=== PATIENT | female | born 1960 | race Caucasian/White ===

== ENCOUNTER 2020-05-28 05:15 | Inpatient (IN) | payer OTHER ==
[~2020-05-28 05:15] MED LIST: ASA81 MG; COZAAR50 MG PO; FORTAMET500 MG PO; SYNTHROID112 MCG PO; VITAMIN D PO
[2020-05-29] MEDS ORDERED: SYNTHROID125 MCG PO (08:23)
[2020-05-29] MEDS ORDERED: VITAMIN D310 MC5 PO (08:25)
[2020-05-31] MEDS ORDERED: GABAPENTIN300 MG PO (07:43)
[2020-05-31] MEDS ORDERED: HIBICLENS118 ML TOP (07:44)
[2020-05-31] MEDS ORDERED: OXYC1TAB9 PO (07:44)
== END 2020-05-31 09:57 | disposition home or self-care (01) | DRG 334 ==
LOC: CIR.AMB 05:15 → O/R 12:06 → SURH 12:06
PROVIDERS: Neurological Surgery; ADMIT Surgery; ATTEND Surgery
PROC: 0DTP0ZZ Resection of Rectum, Open Approach (ICD-10-PCS; principal; 2020-05-28 07:00)
PROC: 0QBS0ZZ Excision of Coccyx, Open Approach (ICD-10-PCS; 2020-05-28 07:00)
DX: C20 Malignant neoplasm of rectum (principal); E11.9 Type 2 diabetes mellitus without complications; I10 Essential (primary) hypertension

== ENCOUNTER 2020-06-04 14:02 | Inpatient (IN) | payer OTHER ==
[~2020-06-04] VITALS: Ht 162.6 cm; Wt 84.8 kg
[~2020-06-04 14:02] MED LIST changes: +GABAPENTIN300 MG PO; +HIBICLENS118 ML TOP; +OXYC1TAB9 PO; +SYNTHROID125 MCG PO; +VITAMIN D310 MC5 PO
[2020-06-04] MEDS ORDERED: SYNTHROID112 MCG PO (14:18)
[2020-06-04] MEDS ORDERED: COZAAR50 MG PO (14:18)
[2020-06-07] MEDS ORDERED: VANCOMYCIN HCL125 MG PO (11:22)
[2020-06-07] MEDS ORDERED: QUESTRAN PACKET4 GM PO (11:24)
== END 2020-06-07 13:04 | disposition home or self-care (01) | DRG 392 ==
LOC: ER 14:02 → SURH 19:05
PROVIDERS: ADMIT Surgery; ATTEND Surgery
PROC: BW21YZZ Computerized Tomography (CT Scan) of Abdomen and Pelvis using Other Contrast (ICD-10-PCS; 2020-06-04)
PROC: 8E0ZXY6 Isolation (ICD-10-PCS; principal; 2020-06-06)
DX: K52.9 Noninfective gastroenteritis and colitis, unspecified (principal); B37.49 Other urogenital candidiasis; C48.0 Malignant neoplasm of retroperitoneum; E03.9 Hypothyroidism, unspecified; I10 Essential (primary) hypertension; E11.9 Type 2 diabetes mellitus without complications; Z20.828 Contact with and (suspected) exposure to other viral communicable diseases

== ENCOUNTER 2020-07-04 07:42 | Outpatient (CLI) | payer OTHER ==
[~2020-07-04 07:42] MED LIST changes: +QUESTRAN PACKET4 GM PO; +VANCOMYCIN HCL125 MG PO
== END 2020-07-04 08:01 | disposition home or self-care (01) ==
LOC: MRI 07:42
PROVIDERS: ATTEND Internal Medicine Hematology & Oncology
DX: C48.0 Malignant neoplasm of retroperitoneum (principal)
CPT/HCPCS: 72196; 74182

== ENCOUNTER 2022-12-01 05:50 | Inpatient (IN) | payer OTHER ==
[~2022-12-01] VITALS: Ht 162.6 cm; Wt 186.9 kg
[2022-12-02] MEDS ORDERED: VENTOLIN HFA18 GM (10:44)
[2022-12-03] MEDS ORDERED: HIBICLENS118 ML TOP (10:23)
[2022-12-03] MEDS ORDERED: NEURONTIN300 MG PO (10:23)
[2022-12-03] MEDS ORDERED: CIPRO500 MG PO (10:24)
[2022-12-03] MEDS ORDERED: METRONIDAZOLE500 MG PO (10:24)
== END 2022-12-04 17:21 | DRG 349 ==
LOC: CIR.AMB 05:50 → ER PEDPPHC 09:30 → CIR.AMB 10:45 → O/R 12:49 → SURH 12:49
PROVIDERS: ADMIT Surgery; ATTEND Surgery
PROC: 0DBP7ZZ Excision of Rectum, Via Natural or Artificial Opening (ICD-10-PCS; principal; 2022-12-01 10:45)
DX: C20 Malignant neoplasm of rectum (principal); K62.7 Radiation proctitis

== ENCOUNTER 2024-11-10 23:21 | Inpatient (IN) | payer OTHER ==
[~2024-11-10] VITALS: Ht 162.6 cm; Wt 74.8 kg
[~2024-11-10 23:21] MED LIST changes: +CIPRO500 MG PO; +METRONIDAZOLE500 MG PO; +NEURONTIN300 MG PO; +VENTOLIN HFA18 GM
[2024-11-10] MEDS ORDERED: 0.9 % SODIUM CHLORIDE 1,000 ML IV SCH (23:30)
[2024-11-10] MEDS ORDERED: CLONIDINE HCL0.1 MG (23:32)
[2024-11-10] MEDS ORDERED: ACTOS30 MG (23:33)
[2024-11-10] MEDS ORDERED: PEPCID AC10 MG (23:33)
--- NOTE | 2024-11-10 23:33 | NUR ---
SE RECIBE PACIENTE ALERTA Y ORIENTADA X 3 ESFERAS EN AMBULANCIA LA CUAL INDICA QUE PRESENTA ABSCESO EN ESPALDA BAJA DESDE HACE DOS DELANEY.
[2024-11-10] MEDS ORDERED: CIPROFLOXACIN IN 5 % DEXTROSE 200 ML IV SCH (23:34)
[2024-11-10] MEDS ORDERED: DEXTROSE 50 % IN WATER 0.5 G/ML DISP.SYRIN IV PRN (23:45)
[2024-11-10] MEDS ORDERED: ONDANSETRON HCL 4 MG in 0.9 % SODIUM CHLORIDE 50 ML IV PRN (23:45)
[2024-11-10] MEDS ORDERED: ACETAMINOPHEN 500 MG GEL..CAP PO PRN (23:45)
[2024-11-10] MEDS ORDERED: INSULIN LISPRO 1,000 UNIT/10 ML UNITS SUBCUTANEO PRN (23:45)
--- NOTE | 2024-11-11 00:47 | NUR ---
EVALUA PACIENTE Y CONSULTA A PACIENTE CON Y DR.RODRIGUEZ HURTADO.
[2024-11-11] MEDS ORDERED: METRONIDAZOLE/SODIUM CHLORIDE 100 ML IV SCH (01:00)
[2024-11-11 01:59] VITALS: BP 139/84; O2SAT 100
[2024-11-11 02:04] LABS: HEMATOCRIT 29.2 % (36.0-45.00); MEAN CELL VOLUME 93.7 fL (80.00-100.00); MEAN CORPUSCULAR HGB CONC 32.9 g/dl (32.0-36.0); RED BLOOD COUNT 3.12 M/uL (4.00-6.00); RED CELL DISTRIBUTION WIDTH 16.2 % (11.5-14.5)
[2024-11-11 02:07] LABS: HEMOGLOBIN 9.6 g/dL (12.0-15.00); MEAN CORPUSCULAR HEMOGLOBIN 30.7 pg (27.00-32.0); PLATELET COUNT 127 K/uL (150-450)
[2024-11-11 02:08] LABS: ERYTHROCYTE SEDIMENTATION RATE 123 mm/hr
[2024-11-11 02:13] LABS: ALBUMIN 2.8 gm/dL (3.4-5.0); BILIRUBIN TOTAL 0.24 mg/dL (0.3-1.2); CREATININE SERUM 0.92 mg/dL (0.55-1.02); GFR 61.65; GLOBULINA 3.6 G/DL (2.4-3.5); POTASSIUM 3.85 mEq/L (3.5-5.1); TOTAL PROTEIN 6.4 gm/dL (6.4-8.2)
[2024-11-11 02:14] LABS: INR 1.01; PARTIAL THROMBOPLASTIN TIME 25.4 SECONDS (22.0-34.0)
[2024-11-11 02:16] LABS: C-REACTIVE PROTEIN 4.25 MG/DL (0.00-0.29)
[2024-11-11] MEDS ORDERED: LEVOTHYROXINE SODIUM 112 MCG TABLET PO SCH (06:00)
[2024-11-11 08:38] VITALS: BP 100/66; O2SAT 100
[2024-11-11] MEDS ORDERED: FAMOTIDINE/PF 20 MG in 0.9 % SODIUM CHLORIDE 8 ML IV PUSH SCH (09:00)
[2024-11-11] MEDS ORDERED: LOSARTAN POTASSIUM 50 MG TABLET PO SCH (09:00)
[2024-11-11] MEDS ORDERED: ENOXAPARIN SODIUM 40 MG/0.4 ML SYRINGE SUBCUTANEO SCH (09:00)
[2024-11-11 09:57] LABS: PH,URINE 5.5 (5.0-8.0); URINE APPEARANCE Clear; URINE BILIRRUBIN Negative (NEGATIVE); URINE BLOOD Negative; URINE COLOR Yellow; URINE GLUCOSE Negative (NEGATIVE); URINE KETONE Negative (NEGATIVE); URINE LEUKOCYTE Negative; URINE NITRATE Negative; URINE PROTEIN Negative (NEGATIVE); URINE UROBILINOGEN 0.2 E.U./dl
[2024-11-11 09:59] LABS: URINE BACTERIA 6.1 uL (0.0-1933); URINE EPITHELIAL CELLS 3.9 uL (0.0-38.8); URINE WBC 3.3 uL (0.0-23.2)
[2024-11-11 10:05] LABS: URINE RBC 1.1 uL (0.0-20.8)
[2024-11-11 16:00] VITALS: BP 117/73; O2SAT 98
[2024-11-11] MEDS ORDERED: CHLORHEXIDINE GLUCONATE 120 ML BOTTLE TOP SCH (17:00)
[2024-11-11] MEDS ORDERED: LACTOBACILLUS ACIDOPHILUS 1 CAP CAP PO SCH (17:00)
[2024-11-12 01:00] VITALS: BP 130/82; O2SAT 100
[2024-11-12 08:00] VITALS: BP 140/82; O2SAT 97
[2024-11-12 08:20] LABS: HEMATOCRIT 26.4 % (36.0-45.00); MEAN CELL VOLUME 92.4 fL (80.00-100.00); MEAN CORPUSCULAR HGB CONC 33.5 g/dl (32.0-36.0); PLATELET COUNT 154 K/uL (150-450); RED BLOOD COUNT 2.86 M/uL (4.00-6.00)
[2024-11-12 08:21] LABS: HEMOGLOBIN 8.9 g/dL (12.0-15.00); MEAN CORPUSCULAR HEMOGLOBIN 31.1 pg (27.00-32.0)
[2024-11-12 08:35] LABS: CALCIUM 8.5 mg/dL (8.5-10.1); CREATININE SERUM 0.7 mg/dL (0.55-1.02); GFR 84.51; POTASSIUM 4.4 mEq/L (3.5-5.1)
[2024-11-12 15:59] VITALS: BP 124/76; O2SAT 100
[2024-11-13] VITALS: BP 126/65; O2SAT 100
[2024-11-13 08:00] VITALS: BP 131/86; O2SAT 97
[2024-11-13 16:40] VITALS: BP 135/85; O2SAT 100
[2024-11-14] VITALS: BP 120/66; O2SAT 99
[2024-11-14 06:51] LABS: HEMATOCRIT 28.1 % (36.0-45.00); HEMOGLOBIN 9.3 g/dL (12.0-15.00); MEAN CELL VOLUME 92.9 fL (80.00-100.00); MEAN CORPUSCULAR HEMOGLOBIN 30.9 pg (27.00-32.0); MEAN CORPUSCULAR HGB CONC 33.2 g/dl (32.0-36.0); PLATELET COUNT 290 K/uL (150-450); RED BLOOD COUNT 3.02 M/uL (4.00-6.00); RED CELL DISTRIBUTION WIDTH 16.1 % (11.5-14.5)
[2024-11-14 07:40] LABS: ALBUMIN 2.6 gm/dL (3.4-5.0); BILIRUBIN TOTAL 0.24 mg/dL (0.3-1.2); CALCIUM 8.8 mg/dL (8.5-10.1); CREATININE SERUM 0.68 mg/dL (0.55-1.02); GFR 87.39; GLOBULINA 2.5 G/DL (2.4-3.5); POTASSIUM 4.8 mEq/L (3.5-5.1); TOTAL PROTEIN 5.1 gm/dL (6.4-8.2)
[2024-11-14 08:44] VITALS: BP 128/73; O2SAT 95
[2024-11-14] MEDS ORDERED: DIPHENHYDRAMINE HCL 50 MG/ML VIAL 1ML ONE (09:10)
[2024-11-14] MEDS ORDERED: METHYLPREDNISOLONE SOD SUCC 125 MG VIAL ONE (09:10)
[2024-11-14] MEDS ORDERED: METHYLPREDNISOLONE SOD SUCC 125 MG VIAL IV ONE (09:15)
[2024-11-14] MEDS ORDERED: DIPHENHYDRAMINE HCL 50 MG/ML VIAL 1ML IV ONE (09:15)
[2024-11-14 17:17] VITALS: BP 147/85; O2SAT 100
[2024-11-15 00:30] VITALS: BP 126/82; O2SAT 100
[2024-11-15 08:00] VITALS: BP 134/85; O2SAT 98
[2024-11-15 11:08] LABS: HEMATOCRIT 29.1 % (36.0-45.00); HEMOGLOBIN 10.2 g/dL (12.0-15.00); MEAN CELL VOLUME 91.8 fL (80.00-100.00); MEAN CORPUSCULAR HEMOGLOBIN 32.2 pg (27.00-32.0); MEAN CORPUSCULAR HGB CONC 35.1 g/dl (32.0-36.0); PLATELET COUNT 389 K/uL (150-450); RED BLOOD COUNT 3.18 M/uL (4.00-6.00); RED CELL DISTRIBUTION WIDTH 16.4 % (11.5-14.5)
[2024-11-15 11:51] LABS: ALBUMIN 2.9 gm/dL (3.4-5.0); BILIRUBIN TOTAL 0.24 mg/dL (0.3-1.2); CALCIUM 8.9 mg/dL (8.5-10.1); CREATININE SERUM 0.78 mg/dL (0.55-1.02); GFR 74.59; GLOBULINA 2.8 G/DL (2.4-3.5); POTASSIUM 3.76 mEq/L (3.5-5.1); TOTAL PROTEIN 5.7 gm/dL (6.4-8.2)
[2024-11-15 15:35] LABS: INR 1.02; PROTHROMBIN TIME 11.1 SECONDS (9.0-11.5)
[2024-11-15 16:00] VITALS: BP 126/82; O2SAT 96
[2024-11-16 00:22] VITALS: BP 115/74; O2SAT 100
[2024-11-16 08:00] VITALS: BP 127/76; O2SAT 96
[2024-11-16] MEDS ORDERED: POVIDONE-IODINE 118 ML BOTT TOP ONE (12:36)
[2024-11-16] MEDS ORDERED: HEMOSTATIC MATRIX 1 KIT KIT TOP ONE (12:36)
[2024-11-16] MEDS ORDERED: LIDOCAINE HCL 1%/EPINEPHRINE 20ML VIAL IJ ONE (12:36)
[2024-11-16] MEDS ORDERED: DIBUCAINE 30 GM TUBE ONE (12:36)
[2024-11-16] MEDS ORDERED: BUPIVACAINE HCL/Mpf 0.5% 10ML VIAL ONE (12:36)
[2024-11-16] MEDS ORDERED: HYDROGEN PEROXIDE 473 ML BOTTLE TOP ONE (13:31)
[2024-11-16] MEDS ORDERED: OxyCODONE HCL 5 MG TABLET (ROXICODONE) PO PRN (15:30)
[2024-11-16] MEDS ORDERED: MORPHINE SULFATE 4 MG/ML CARTRIDGE IV PRN (15:30)
[2024-11-16] MEDS ORDERED: ONDANSETRON HCL 2 MG/ML VIAL IV PRN (15:30)
[2024-11-16] MEDS ORDERED: METRONIDAZOLE/SODIUM CHLORIDE 500 MG/100 ML PIGGYBACK IV ONE (15:53)
[2024-11-16] MEDS ORDERED: ONDANSETRON HCL 2 MG/ML VIAL ONE (15:53)
[2024-11-16 16:00] VITALS: BP 122/80; O2SAT 96
[2024-11-16] MEDS ORDERED: ACETAMINOPHEN 500 MG GEL..CAP PO SCH (20:00)
[2024-11-16] MEDS ORDERED: FAMOTIDINE/PF 20 MG/2 ML VIAL IV PUSH SCH (21:00)
[2024-11-17 00:51] VITALS: BP 116/72; O2SAT 96
[2024-11-17 07:38] LABS: HEMATOCRIT 33.3 % (36.0-45.00); HEMOGLOBIN 10.7 g/dL (12.0-15.00); MEAN CELL VOLUME 93.8 fL (80.00-100.00); RED BLOOD COUNT 3.55 M/uL (4.00-6.00); RED CELL DISTRIBUTION WIDTH 17.1 % (11.5-14.5)
[2024-11-17 07:58] LABS: PLATELET COUNT 689 K/uL (150-450)
[2024-11-17 08:00] VITALS: BP 141/74; O2SAT 97
[2024-11-17 13:09] LABS: ALBUMIN 2.9 gm/dL (3.4-5.0); CALCIUM 8.9 mg/dL (8.5-10.1); CREATININE SERUM 0.8 mg/dL (0.55-1.02); GFR 72.44; MAGNESIUM 2.1 mg/dL (1.8-2.4); PHOSPHOROUS 3.6 mg/dL (2.5-4.9); POTASSIUM 4.31 mEq/L (3.5-5.1)
[2024-11-17 16:00] VITALS: BP 107/69; O2SAT 95
[2024-11-18 00:25] VITALS: BP 124/83; O2SAT 98
[2024-11-18 08:00] VITALS: BP 117/78; O2SAT 96
[2024-11-18] MEDS ORDERED: LINEZOLID IN DEXTROSE 5% 600 MG/300 ML PIGGYBAG IV STA (14:23)
[2024-11-18 16:31] VITALS: BP 110/61; O2SAT 98
[2024-11-18] MEDS ORDERED: LINEZOLID IN DEXTROSE 5% 300 ML IV SCH (21:00)
[2024-11-18] MEDS ORDERED: FAMOtidine 20 MG TABLET PO SCH (21:00)
[2024-11-19 00:24] VITALS: BP 126/81; O2SAT 97
[2024-11-19] MEDS ORDERED: LINEZOLID IN DEXTROSE 5% 300 ML IV SCH (05:00)
[2024-11-19 08:50] VITALS: BP 138/92; O2SAT 99
[2024-11-19 16:00] VITALS: BP 134/82; O2SAT 96
[2024-11-20] VITALS: BP 127/81; O2SAT 98
[2024-11-20 09:02] VITALS: BP 114/77; O2SAT 97
[2024-11-20 16:00] VITALS: BP 141/72; O2SAT 91
[2024-11-21] VITALS: BP 138/79; O2SAT 98
[2024-11-21 07:10] LABS: MEAN CELL VOLUME 91.5 fL (80.00-100.00); MEAN CORPUSCULAR HEMOGLOBIN 30.9 pg (27.00-32.0); MEAN CORPUSCULAR HGB CONC 33.8 g/dl (32.0-36.0); RED BLOOD COUNT 3.17 M/uL (4.00-6.00); RED CELL DISTRIBUTION WIDTH 17.3 % (11.5-14.5)
[2024-11-21 07:31] LABS: HEMOGLOBIN 9.8 g/dL (12.0-15.00); PLATELET COUNT 719 K/uL (150-450)
[2024-11-21 07:39] LABS: CALCIUM 9.2 mg/dL (8.5-10.1); CREATININE SERUM 0.69 mg/dL (0.55-1.02); GFR 85.93; POTASSIUM 4.29 mEq/L (3.5-5.1)
[2024-11-21 08:56] VITALS: BP 125/78; O2SAT 96
== END 2024-11-21 12:34 | disposition home or self-care (01) | DRG 372 ==
LOC: ER 23:21 → SURH 23:36
PROVIDERS: General Practice; Surgery; ADMIT Student in an Organized Health Care Education/Training Program; ATTEND Student in an Organized Health Care Education/Training Program
PROC: BW21YZZ Computerized Tomography (CT Scan) of Abdomen and Pelvis using Other Contrast (ICD-10-PCS; principal; 2024-11-14)
PROC: 0SB Lower Joints, Excision (ICD-10-PCS; 2024-11-16)
PROC: 3E0T3BZ Introduction of Anesthetic Agent into Peripheral Nerves and Plexi, Percutaneous Approach (ICD-10-PCS; 2024-11-16)
DX: K65.1 Peritoneal abscess (principal); C48.0 Malignant neoplasm of retroperitoneum; C78.00 Secondary malignant neoplasm of unspecified lung; B95.2 Enterococcus as the cause of diseases classified elsewhere; K62.89 Other specified diseases of anus and rectum; K52.9 Noninfective gastroenteritis and colitis, unspecified; Z88.0 Allergy status to penicillin; I10 Essential (primary) hypertension; E03.9 Hypothyroidism, unspecified; E11.9 Type 2 diabetes mellitus without complications; Z79.4 Long term (current) use of insulin

== ENCOUNTER 2025-03-08 08:48 | Emergency (ER) | payer OTHER ==
[~2025-03-08] VITALS: Ht 162.6 cm; Wt 79.4 kg
[~2025-03-08 08:48] MED LIST changes: +ACTOS30 MG; +CLONIDINE HCL0.1 MG; +PEPCID AC10 MG
[2025-03-08] MEDS ORDERED: NIVESTYM300 MCG/1 (09:07)
[2025-03-08] MEDS ORDERED: CARVEDILOL3.125 M1 PO (09:08)
[2025-03-08] MEDS ORDERED: 0.9 % SODIUM CHLORIDE 1,000 ML IV ONE (09:15)
[2025-03-08 10:11] LABS: EOS # 0.06 (0.04-0.54); HEMATOCRIT 33.7 % (34.1-44.9); HEMOGLOBIN 10.4 g/dL (11.2-15.7); LYMPH # 0.74 (1.18-3.74); LYMPH % 11.7 % (19.3-53.1); MEAN CORPUSCULAR HEMOGLOBIN 26.9 pg (25.6-32.2); MONO # 0.84 (0.24-0.82); NEUT # 4.52 (1.56-6.13); NEUT % 71.7 % (34.0-71.1); RED BLOOD COUNT 3.86 M/uL (3.93-5.22); RED CELL DISTRIBUTION WIDTH 17.2 % (11.6-14.4)
[2025-03-08] MEDS ORDERED: TRAMADOL HCL 50 MG TABLET PO ONE (10:15)
[2025-03-08 10:19] LABS: PARTIAL THROMBOPLASTIN TIME 25.2 SECONDS (22.0-34.0); PROTHROMBIN TIME 10.9 SECONDS (9.0-11.5)
[2025-03-08 10:32] LABS: ALBUMIN 2.9 gm/dL (3.4-5.0); BILIRUBIN TOTAL 0.34 mg/dL (0.3-1.2); CALCIUM 8.8 mg/dL (8.5-10.1); CREATININE SERUM 0.7 mg/dL (0.55-1.02); GFR 84.51; GLOBULINA 3.4 G/DL (2.4-3.5); POTASSIUM 4.5 mEq/L (3.5-5.1); TOTAL PROTEIN 6.3 gm/dL (6.4-8.2)
[2025-03-08 11:07] LABS: MONO % 13.3 % (4.7-12.5)
[2025-03-08 11:08] LABS: PLATELET COUNT 70 K/uL (163-369)
[2025-03-08 12:21] LABS: URINE APPEARANCE Clear; URINE BILIRRUBIN Negative (NEGATIVE); URINE BLOOD NHT; URINE COLOR Yellow; URINE GLUCOSE Negative (NEGATIVE); URINE KETONE Negative (NEGATIVE); URINE LEUKOCYTE Negative; URINE NITRATE Negative; URINE PROTEIN Trace (NEGATIVE); URINE UROBILINOGEN 0.2 E.U./dl
[2025-03-08 12:25] LABS: URINE BACTERIA 692.6 uL (0.0-1933); URINE CAST 0.14 uL (0.0-1.40); URINE EPITHELIAL CELLS 50.4 uL (0.0-38.8); URINE WBC 33.5 uL (0.0-23.2)
== END 2025-03-08 13:32 | disposition home or self-care (01) ==
LOC: ER 08:48
PROVIDERS: General Practice
DX: S09.8XXA Other specified injuries of head, initial encounter (principal); W19.XXXA Unspecified fall, initial encounter; Y93.89 Activity, other specified; Y92.89 Other specified places as the place of occurrence of the external cause; Y99.8 Other external cause status; R55 Syncope and collapse; I10 Essential (primary) hypertension; E03.8 Other specified hypothyroidism; Z88.0 Allergy status to penicillin

== ENCOUNTER 2025-03-28 14:39 | Inpatient (IN) | payer OTHER ==
[~2025-03-28] VITALS: Ht 162.6 cm; Wt 78.9 kg
[~2025-03-28 14:39] MED LIST changes: +CARVEDILOL3.125 M1 PO; +NIVESTYM300 MCG/1
--- NOTE | 2025-03-28 16:07 | NUR ---
SE RECIBE PTE ALERTA, ORIENTADA X3 Y AMBULANDO. PTE REFIERE DOLOR DE ESPALDA Y DIFICULTAD AL RESPIRAR. PTE REFIERE METASTASIS EN PULMONES. PTE DE CHEVY. JERAMY. SE MIDEN S/V Y SE UBICA.
[2025-03-28] MEDS ORDERED: levoFLOXacin IN DEXTROSE 5 % 500MG/100ML PIGGYBAG IV ONE (16:45)
[2025-03-28] MEDS ORDERED: 0.9 % SODIUM CHLORIDE 1,000 ML IV ONE (16:45)
[2025-03-28] MEDS ORDERED: LEVALBUTEROL HCL 1.25 MG/3 ML SOLUTION IH ONE (16:45)
[2025-03-28] MEDS ORDERED: FAMOtidine 10 MG/ML (4ML VIAL) IV ONE (16:45)
[2025-03-28] MEDS ORDERED: BENZONATATE 200 MG CAPSULE PO ONE (16:45)
--- NOTE | 2025-03-28 17:06 | NUR ---
MR LEATHA ORIENTA PTE SOBRE TX MEDICO EL CUAL REFIERE ENTENDER.SE LE EXTRAEN MUESTRAS BAJO MEDIDAS ASEPTICAS,SE CANALIZA Y SE ADMINISTRAN MEDICAMENTOS.SE NOTIFICAN ABG,TERAPIAS RESP Y ESTUDIOS.
[2025-03-28 17:18] LABS: BASO % 0.7 % (0.1-1.2); EOS # 0.07 (0.04-0.54); EOS % 0.4 % (0.7-7.0); LYMPH # 1.88 (1.18-3.74); LYMPH % 9.4 % (19.3-53.1); MEAN PLATELET VOLUME 9.90 fl (9.4-12.4); MONO # 1.75 (0.24-0.82); MONO % 8.8 % (4.7-12.5); NEUT # 15.28 (1.56-6.13); NEUT % 76.7 % (34.0-71.1); RED CELL DISTRIBUTION WIDTH 17.8 % (11.6-14.4)
[2025-03-28 17:38] LABS: ALT/SGPT 37.0 U/L (12-78); AST/SGOT 24.0 U/L (15-37); BILIRUBIN TOTAL 0.23 mg/dL (0.3-1.2); BUN CREA RATIO 20.0 (7.0-25.0); CREATININE SERUM 0.9 mg/dL (0.55-1.02); GFR 63.24; GLOBULINA 4.4 G/DL (2.4-3.5); GLUCOSE FASTING 116.0 mg/dL (65-100); OSMOLALITY SERUM 286.0 MOSM/KG (275-295)
[2025-03-28 17:46] LABS: INR 1.02
[2025-03-28 17:52] LABS: ERYTHROCYTE SEDIMENTATION RATE > 130 mm/hr (0-30)
[2025-03-28 18:01] LABS: D DIMER 4.09 MG/L
[2025-03-28 18:02] LABS: LYMPHOCYTE MAN 3.0 %; MONOCYTE MAN 8.0 %; NEUTROPHILS MAN 82.0 %
[2025-03-28 18:03] LABS: METAMYELOCYTE 1.0 %; MYELOCYTE 1.0 %
[2025-03-28 18:05] LABS: COVID-19 AG NEGATIVE (NEGATIVE)
[2025-03-28 19:02] LABS: ABG PH 7.478 (7.35-7.45)
[2025-03-28 19:03] LABS: BICARBONATE 23.3 mmol/l (23-25); o2 21 %
[2025-03-28 19:05] LABS: ABG PO2 71.5 mmHg (80-100)
[2025-03-28 19:11] LABS: URINE APPEARANCE Clear; URINE BILIRRUBIN Negative (NEGATIVE); URINE BLOOD Negative; URINE COLOR Yellow; URINE GLUCOSE Negative (NEGATIVE); URINE KETONE Negative (NEGATIVE); URINE LEUKOCYTE Negative; URINE NITRATE Negative; URINE PROTEIN 30 (NEGATIVE); URINE UROBILINOGEN 0.2 E.U./dl
[2025-03-28 19:12] LABS: URINE BACTERIA 13.1 uL (0.0-1933); URINE EPITHELIAL CELLS 12.6 uL (0.0-38.8); URINE RBC 5.5 uL (0.0-20.8); URINE WBC 8.1 uL (0.0-23.2)
[2025-03-28 19:19] LABS: URINE CAST 0.43 uL (0.0-1.40)
[2025-03-29] MEDS ORDERED: levoFLOXacin IN DEXTROSE 5 % 150 ML IV SCH (00:16)
[2025-03-29] MEDS ORDERED: ACETAMINOPHEN 500 MG GEL..CAP PO PRN (00:30)
[2025-03-29] MEDS ORDERED: DEXTROSE 50 % IN WATER 0.5 G/ML DISP.SYRIN IV PRN (00:30)
[2025-03-29] MEDS ORDERED: INSULIN LISPRO 1,000 UNIT/10 ML UNITS SUBCUTANEO PRN (00:30)
[2025-03-29] MEDS ORDERED: IPRATROPIUM BROMIDE 0.5 MG/2.5 ML AMPUL.NEB IH SCH (01:00)
[2025-03-29 02:24] VITALS: BP 130/85
[2025-03-29] MEDS ORDERED: LEVOTHYROXINE SODIUM 125 MCG TABLET PO SCH (06:00)
[2025-03-29] MEDS ORDERED: LOSARTAN POTASSIUM 25 MG TABLET PO SCH (09:00)
[2025-03-29 09:18] VITALS: BP 119/72; O2SAT 100
[2025-03-29 16:26] VITALS: BP 116/66; O2SAT 100
[2025-03-29] MEDS ORDERED: LACTOBACILLUS ACIDOPHILUS 1 CAP CAP PO SCH (17:00)
[2025-03-29] MEDS ORDERED: LINEZOLID IN DEXTROSE 5% 600 MG/300 ML PIGGYBAG IV SCH (17:00)
[2025-03-29 19:26] VITALS: BP 120/75; O2SAT 98
[2025-03-29 19:47] LABS: MONONUCLEAR 62.9 %; POLYMORPHONUCLEAR 37.1 %
[2025-03-29 19:53] LABS: GLU PLEURAL FLUID 123.0 mg/dl; LDH PLEURAL FLUID 471.0 U/L; TP PLEURAL FLUID 4.5 g/dl
[2025-03-29] MEDS ORDERED: DEXTROSE 50 % IN WATER 0.5 G/ML VIAL IV PRN (20:00)
[2025-03-30 01:00] VITALS: BP 88/64
[2025-03-30 09:27] VITALS: BP 98/65; O2SAT 95
[2025-03-30] MEDS ORDERED: CHLORHEXIDINE GLUCONATE 120 ML BOTTLE TOP SCH (17:00)
[2025-03-30 18:16] VITALS: BP 92/55; O2SAT 97
[2025-03-31 01:29] VITALS: BP 100/58
[2025-03-31 08:00] VITALS: BP 102/68; O2SAT 94
[2025-03-31 16:45] VITALS: BP 103/68; O2SAT 94
[2025-04-01 03:27] VITALS: BP 88/58; O2SAT 92
[2025-04-01 08:03] LABS: BASO % 0.5 % (0.1-1.2); EOS # 0.42 (0.04-0.54); EOS % 2.2 % (0.7-7.0); LYMPH # 1.72 (1.18-3.74); LYMPH % 9.0 % (19.3-53.1); MEAN PLATELET VOLUME 10.00 fl (9.4-12.4); MONO # 1.67 (0.24-0.82); MONO % 8.8 % (4.7-12.5); NEUT # 14.77 (1.56-6.13); NEUT % 77.5 % (34.0-71.1); RED CELL DISTRIBUTION WIDTH 18.8 % (11.6-14.4)
[2025-04-01 08:21] LABS: BUN CREA RATIO 13.0 (7.0-25.0); CREATININE SERUM 0.82 mg/dL (0.55-1.02); GFR 70.41; GLUCOSE FASTING 92.0 mg/dL (65-100); OSMOLALITY SERUM 277.0 MOSM/KG (275-295)
[2025-04-01 10:16] VITALS: BP 97/66
[2025-04-01 18:56] VITALS: BP 97/60
[2025-04-01 20:46] VITALS: BP 87/55
[2025-04-01 21:15] VITALS: BP 102/66; O2SAT 96
[2025-04-02 02:51] VITALS: BP 86/47; O2SAT 95
[2025-04-02 08:59] VITALS: BP 104/69
[2025-04-02 17:38] VITALS: BP 115/75
[2025-04-02 20:28] VITALS: BP 105/72; O2SAT 97
[2025-04-03 02:28] VITALS: BP 84/54; O2SAT 95
[2025-04-03 06:33] LABS: BASO % 0.2 % (0.1-1.2); EOS # 0.32 (0.04-0.54); EOS % 1.4 % (0.7-7.0); LYMPH # 1.68 (1.18-3.74); LYMPH % 7.4 % (19.3-53.1); MEAN PLATELET VOLUME 10.60 fl (9.4-12.4); MONO # 1.18 (0.24-0.82); MONO % 5.2 % (4.7-12.5); NEUT # 19.45 (1.56-6.13); NEUT % 85.1 % (34.0-71.1); RED CELL DISTRIBUTION WIDTH 19.1 % (11.6-14.4)
[2025-04-03 08:32] VITALS: BP 97/65; O2SAT 98
[2025-04-03 10:18] LABS: ABG PH 7.469 (7.35-7.45); BICARBONATE 29.0 mmol/l (23-25)
[2025-04-03 10:22] LABS: ABG PO2 57.6 mmHg (80-100); o2 21 %
[2025-04-03] MEDS ORDERED: FLUCONAZOLE IN NACL,ISO-OSM 200 MG/100 ML PIGGYBAG IV SCH (17:00)
[2025-04-03 17:57] VITALS: BP 89/61
[2025-04-03] MEDS ORDERED: MEROPENEM 500 MG/VIAL VIAL IV SCH (18:00)
[2025-04-04 00:30] VITALS: BP 79/52; O2SAT 97
[2025-04-04 05:00] VITALS: BP 94/64
[2025-04-04 07:48] VITALS: BP 103/70
[2025-04-04] MEDS ORDERED: FLUCONAZOLE 200 MG TABLET PO SCH (17:00)
[2025-04-04] MEDS ORDERED: LINEZOLID 600 MG TABLET PO SCH (17:00)
[2025-04-04 19:05] VITALS: BP 91/56; O2SAT 97
[2025-04-05 01:28] VITALS: BP 89/61; O2SAT 98
[2025-04-05 06:19] LABS: BASO % 0.4 % (0.1-1.2); EOS # 0.47 (0.04-0.54); EOS % 2.5 % (0.7-7.0); LYMPH # 1.32 (1.18-3.74); LYMPH % 6.9 % (19.3-53.1); MEAN PLATELET VOLUME 10.30 fl (9.4-12.4); MONO # 0.85 (0.24-0.82); MONO % 4.4 % (4.7-12.5); NEUT # 16.33 (1.56-6.13); NEUT % 85.3 % (34.0-71.1); RED CELL DISTRIBUTION WIDTH 19.0 % (11.6-14.4)
[2025-04-05] MEDS ORDERED: MEPERIDINE HCL/PF 25 MG/ML VIAL IV PRN (07:45)
[2025-04-05] MEDS ORDERED: GUAIFENESIN 200 MG/10 ML BLIST.PACK PO SCH (08:00)
[2025-04-05 09:31] VITALS: BP 113/76; O2SAT 95
[2025-04-05] MEDS ORDERED: DIPHENHYDRAMINE HCL 50 MG/ML VIAL 1ML IV PRN (10:15)
[2025-04-05] MEDS ORDERED: METHYLPREDNISOLONE SOD SUCC 40 MG VIAL IV PRN (10:15)
[2025-04-05 17:50] VITALS: BP 99/67; O2SAT 98
[2025-04-06 02:13] VITALS: BP 95/65; O2SAT 95
[2025-04-06 07:05] LABS: BASO % 0.1 % (0.1-1.2); EOS # 0.00 (0.04-0.54); EOS % 0.0 % (0.7-7.0); LYMPH # 0.71 (1.18-3.74); LYMPH % 3.6 % (19.3-53.1); MEAN PLATELET VOLUME 10.30 fl (9.4-12.4); MONO # 0.67 (0.24-0.82); MONO % 3.4 % (4.7-12.5); NEUT # 18.15 (1.56-6.13); NEUT % 92.1 % (34.0-71.1); RED CELL DISTRIBUTION WIDTH 19.4 % (11.6-14.4)
[2025-04-06 07:51] LABS: ALT/SGPT 34.0 U/L (12-78); AST/SGOT 25.0 U/L (15-37); BILIRUBIN TOTAL 0.23 mg/dL (0.3-1.2); BUN CREA RATIO 22.0 (7.0-25.0); CREATININE SERUM 0.74 mg/dL (0.55-1.02); GFR 79.26; GLOBULINA 3.3 G/DL (2.4-3.5); GLUCOSE FASTING 122.0 mg/dL (65-100); OSMOLALITY SERUM 280.0 MOSM/KG (275-295)
[2025-04-06] MEDS ORDERED: DIPHENHYDRAMINE HCL 50 MG/ML VIAL 1ML IV ONE (09:45)
[2025-04-06] MEDS ORDERED: METHYLPREDNISOLONE SOD SUCC 40 MG VIAL IV ONE (09:45)
[2025-04-06 10:32] VITALS: BP 97/60; O2SAT 96
[2025-04-06 17:03] VITALS: BP 101/68; O2SAT 97
[2025-04-06] MEDS ORDERED: fentaNYL CITRATE 50 MCG/ML AMPUL IV PUSH ONE (17:30)
[2025-04-06] MEDS ORDERED: MIDAZOLAM HCL 2 MG/2 ML VIAL IV PUSH ONE (17:30)
[2025-04-07 02:06] VITALS: BP 98/62; O2SAT 95
[2025-04-07 09:06] VITALS: BP 117/72; O2SAT 99
[2025-04-07 17:34] VITALS: BP 92/54; O2SAT 97
[2025-04-08 02:36] VITALS: BP 90/56; O2SAT 96
[2025-04-08 09:46] VITALS: BP 116/74
[2025-04-08] MEDS ORDERED: OxyCODONE HCL 5 MG TABLET (ROXICODONE) PO PRN (10:00)
[2025-04-08 17:54] VITALS: BP 96/59
[2025-04-09 00:30] VITALS: BP 98/63; O2SAT 96
[2025-04-09 09:11] VITALS: BP 95/58; O2SAT 98
[2025-04-09 18:05] VITALS: BP 97/58
[2025-04-10 00:35] VITALS: BP 99/62
[2025-04-10 10:13] VITALS: BP 102/71; O2SAT 97
[2025-04-10 12:48] LABS: BASO % 0.5 % (0.1-1.2); EOS # 0.68 (0.04-0.54); EOS % 4.1 % (0.7-7.0); LYMPH # 1.44 (1.18-3.74); LYMPH % 8.8 % (19.3-53.1); MEAN PLATELET VOLUME 10.10 fl (9.4-12.4); MONO # 1.86 (0.24-0.82); MONO % 11.3 % (4.7-12.5); NEUT # 12.27 (1.56-6.13); NEUT % 74.6 % (34.0-71.1); RED CELL DISTRIBUTION WIDTH 20.4 % (11.6-14.4)
[2025-04-10 14:49] LABS: ABG PH 7.453 (7.35-7.45); ABG PO2 63.0 mmHg (80-100); BICARBONATE 27.3 mmol/l (23-25)
[2025-04-10 14:50] LABS: o2 21 %
[2025-04-10 19:05] VITALS: BP 99/65
[2025-04-11 02:31] VITALS: BP 98/64; O2SAT 95
[2025-04-11 08:38] VITALS: BP 103/63; O2SAT 97
[2025-04-11] MEDS ORDERED: ACETAMINOPHEN 500 MG GEL..CAP PO PRN (12:30)
[2025-04-11 19:30] VITALS: BP 84/55
[2025-04-12 02:22] VITALS: BP 105/67; O2SAT 93
[2025-04-12 08:25] VITALS: BP 96/63; O2SAT 88
== END 2025-04-12 13:02 | disposition home or self-care (01) | DRG 181 ==
LOC: ER 14:39 → MEDJ 03-29 00:19 → SEC-K 03-29 00:19 → SURH 03-29 11:09 → SEC-K 03-29 13:55 → MEDJ 03-29 14:16
PROVIDERS: General Practice; Internal Medicine; Internal Medicine Infectious Disease; Radiology Vascular & Interventional Radiology; ADMIT Internal Medicine; ATTEND Internal Medicine
PROC: BW24YZZ Computerized Tomography (CT Scan) of Chest and Abdomen using Other Contrast (ICD-10-PCS; 2025-03-28)
PROC: 0W993ZX Drainage of Right Pleural Cavity, Percutaneous Approach, Diagnostic (ICD-10-PCS; principal; 2025-03-29)
PROC: 8E0ZXY6 Isolation (ICD-10-PCS; 2025-03-29)
PROC: 0W9930Z Drainage of Right Pleural Cavity with Drainage Device, Percutaneous Approach (ICD-10-PCS; 2025-04-03)
PROC: BW24YZZ Computerized Tomography (CT Scan) of Chest and Abdomen using Other Contrast (ICD-10-PCS; 2025-04-05)
PROC: 0BBN3ZX Excision of Right Pleura, Percutaneous Approach, Diagnostic (ICD-10-PCS; 2025-04-06)
PROC: 0WP9X0Z Removal of Drainage Device from Right Pleural Cavity, External Approach (ICD-10-PCS; 2025-04-11)
DX: C78.01 Secondary malignant neoplasm of right lung (principal); C49.9 Malignant neoplasm of connective and soft tissue, unspecified; J90 Pleural effusion, not elsewhere classified; I10 Essential (primary) hypertension; E03.9 Hypothyroidism, unspecified; E11.9 Type 2 diabetes mellitus without complications; Z79.4 Long term (current) use of insulin; D64.9 Anemia, unspecified